=== PATIENT | male | born 1985 | race Caucasian/White ===

== ENCOUNTER 2017-01-16 14:16 | Emergency (ER) | payer OTHER ==
[~2017-01-16] VITALS: Ht 170.2 cm; Wt 72.7 kg
[2017-01-16 15:29] VITALS: BP 149/89; PULSE 79; RESP 18; O2SAT 98
--- NOTE | 2017-01-16 16:40 | DRSVH ---
PROCEDURE: X-RAY LEFT ANKLE, MINIMUM THREE VIEWS ([id number]) INDICATIONS: FALL TECHNIQUE: 3 views of the ankle were acquired. COMPARISON: None. FINDINGS: Bones: No fractures or dislocations. Ankle mortise is normally aligned. No suspicious bony lesions . Tibial jason is present. Soft tissues: No tibiotalar joint effusion. Achilles tendon appears normal. IMPRESSION: 1. No acute fracture or mortise asymmetry. 2. Distal portion of tibial jason is included. Dictated by: Darien Sykes M.D. on 01/16/2017 at 16:32 Approved by: Darien Sykes M.D. on 01/16/2017 at 16:39
--- NOTE | 2017-01-16 18:00 | ED.REPORT ---
HPI-Extremity Problem Lower Date of Service Jan 16, 2017 ED Provider: Doc,Ed MD History of Present Illness: climbing down a tree and left ankle pain happened last night. States did not have shoe on tight and twisted left ankle. happened at work. primary care is [facility] at [facility]. normally healthy. pain is fine at rest. 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 Nursing Notes Stated Complaint: LEFT ANKLE INJURY Chief Complaint: Extremity Trauma Nursing Notes Reviewed: Yes Allergies: Coded Allergies: No Known Allergies (Unverified , 01/16/17) General Time Seen by MD: 17:59 Chief Complaint Ankle injury left Hx Obtained From: Patient Onset Occurred: Yesterday Past Medical History Past Medical History none reported Denies: Asthma, Diabetes mellitus Past Surgical History jaw, left leg surgery Smoking History Current Every Day Smoker (3 cig a day for for 18 years) Social History Alcohol Use: "Social" Drug Use: Denies drug use Other Social History: Good social support Occupation lives with roommate, 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 01/16/2017 Ambulatory Status Independent Review of Systems Basic Review of Systems Eyes: Vision NL, No discharge GI: No abdominal pain, No anorexia, No nausea, No vomiting Psychiatric: Normal thought content Physical Exam Initial Vital Signs Vital Signs (First) Date Time Temp Pulse Resp B/P Pulse Ox O2 Delivery O2 Flow Rate FiO2 01/16/17 15:29 37.1 79 18 149/89 98 Room Air Initial VS: Reviewed, Vital signs normal General/Constitutional: Well-developed, Well-nourished Head / Eyes: Atraumatic, Normocephalic, PERRL ENT: Mucous membranes moist, Conjunctiva normal, No scleral icterus Neck: Supple, Non-tender, Full range of motion Respiratory: Breath sounds normal, Clear to auscultation, No respiratory distress Cardiovascular: Regular rate & rhythm, Heart sounds normal, Intact distal pulses Abdomen / GI: Soft, Non-tender, No guarding, No rebound, No distention Back: No CVA tenderness Lymphatic: No lymphadenopathy Upper Extremities: Vascular intact, Neuro intact, No swelling, No tenderness Skin: Warm, Dry, No cyanosis Neurologic: Alert, Oriented, Nonfocal Psychiatric: Mood/affect normal, Behavior normal, Normal thought content left ankle with no obvious swelling. No ecchymosis noted. FROM of toes and ankle. Sensation intact distally. Cap refill less than 2 sec. able to remove sock without difficulty General/Constitutional: Awake, Alert, No acute distress, Well appearing, Well developed, Well hydrated, Well nourished, Cooperative, Not toxic appearing Respiratory / Chest: Atraumatic, Breath sounds NL, Breath sounds = bilat, No respiratory distress, No rales Cardiovascular: Heart rate NL, Regular rhythm, Heart sounds NL, No gallop Interpretation & Diagnostics X-Ray Interpretation Xray Interpretation: PROCEDURE: X-RAY LEFT ANKLE, MINIMUM THREE VIEWS ([id number]) INDICATIONS: FALL TECHNIQUE: 3 views of the ankle were acquired. COMPARISON: None. FINDINGS: Bones: No fractures or dislocations. Ankle mortise is normally aligned. No suspicious bony lesions. Tibial jason is present. Soft tissues: No tibiotalar joint effusion. Achilles tendon appears normal. IMPRESSION: 1. No acute fracture or mortise asymmetry. 2. Distal portion of tibial jason is included. Dictated by: Darien Sykes M.D. on 01/16/2017 at 16:32 Approved by: Darien Sykes M.D. on 01/16/2017 at 16:39 Re-Eval/Medical Decision Med Decision/Clinical Course 31 year old male presents for evualation of left ankle injury which happened yesterday while climbing down a tree. Exam does not show any swelling or ecchymosis. Sensation and movement intact. X-ray is negative. No sign of compartment syndrome or fracture Discharge & Departure Impression: Primary Impression: Left ankle sprain Encounter type: initial encounter Involved ligament of ankle: unspecified ligament Qualified Code: S93.402A - Sprain of unspecified ligament of left ankle, initial encounter Disposition: Home Patient Instructions: Ankle Exercises (GEN), Ankle Sprain (ED) Additional Instructions: The x-ray does not show any bony damage. The soft tissue on x-ray appears normal. Exam does not show any significant swelling or bleeding. Use ibuprofen 800 mg up to 3 times a day for 5 days. Elevate the leg as much as possible. Use ice 15 minutes on and 15 minutes off. Opiates would not be indicated for an ankle sprain. Yoiu are provided a note for work if needed. I am sorry this happened. Referrals: [facility] (PCP) EDSupervising Provider for APC: Pierre Harman DO copies to: [facility] BradchrisAsuncion Jan 16, 2017 18:00
== END 2017-01-16 18:40 | disposition home or self-care (01) ==
LOC: SED 14:16
DX: S93.402A Sprain of unspecified ligament of left ankle, initial encounter (principal); X50.1XXA Overexertion from prolonged static or awkward postures, initial encounter; Y93.89 Activity, other specified; Y92.89 Other specified places as the place of occurrence of the external cause; Y99.8 Other external cause status; F17.210 Nicotine dependence, cigarettes, uncomplicated